=== PATIENT | female | born 1990 | race Asian ===

== ENCOUNTER 2020-02-02 17:51 | Inpatient (IN) | payer OTHER ==
[~2020-02-02] VITALS: Ht 157.5 cm; Wt 66.8 kg
[2020-02-02 18:04] VITALS: BP 104/68
[2020-02-02] MEDS ORDERED: OXYTOCIN 30U/ 0.9% NaCL 500ML 500 ML ONE (19:19)
[2020-02-02] MEDS ORDERED: NEWBORN KIT ONE (19:20)
[2020-02-02] MEDS ORDERED: OXYTOCIN 30U/ 0.9% NaCL 500ML 500 ML IV PRN (20:12)
[2020-02-02] MEDS ORDERED: OXYTOCIN 30U/ 0.9% NaCL 500ML 500 ML IV ONE (20:12)
[2020-02-02] MEDS ORDERED: FENTANYL/BUPIV./NS/PF 250 ML EPIDCONT SCH (20:14)
[2020-02-02] MEDS ORDERED: FENTANYL PF 100 MCG/2ML ONE ×3 (20:14→22:34)
[2020-02-02] MEDS: FENTANYL PF 100 MCG/2ML IVPush PRN ×3 (20:18→22:36)
[2020-02-02] MEDS: LACTATED RINGERS 1,000 ML IV SCH (20:19)
[2020-02-02] MEDS ORDERED: TERBUTALINE 1 MG/ML, 1ML SQ PRN (20:30)
[2020-02-02] MEDS ORDERED: FENTANYL PF 500 MCG, BUPIVACAINE/PF 0.5%, 30ML 62.5 ML in SODIUM CHLORIDE 0.9% 177.5 ML EPIDCONT SCH (20:30)
[2020-02-02] MEDS ORDERED: EPHEDRINE 50 MG/ML, 1ML IVPush PRN (20:30)
[2020-02-02] MEDS ORDERED: CALCIUM CARBONATE 500 MG TAB.CHEW PO PRN (20:30)
[2020-02-02] MEDS ORDERED: LACTATED RINGERS 1,000 ML IVBOLUS PRN (20:30)
[2020-02-02] MEDS ORDERED: TERBUTALINE 1 MG/ML, 1ML IVPush PRN (20:30)
[2020-02-02] MEDS ORDERED: FENTANYL PF 100 MCG/2ML IV PRN (20:30)
[2020-02-02] MEDS ORDERED: ONDANSETRON 2MG/ML, 2ML IVPush PRN (20:30)
[2020-02-02 20:38] LABS: BASOPHILS # (AUTO) 0.18 x10^3/uL (0-0.1); BASOPHILS % (AUTO) 2 % (0-1); EOSINOPHILS # (AUTO) 0.09 x10^3/uL (0-0.4); EOSINOPHILS % (AUTO) 1 % (1-7); LYMPHOCYTES # (AUTO) 1.41 x10^3/uL (1-3.4); LYMPHOCYTES % (AUTO) 13 % (22-44); MD NO; MEAN CORPUSCULAR HEMOGLOBIN 31.8 pg (27.0-34.8); MEAN CORPUSCULAR HGB CONC 33.4 g/dL (32.4-35.8); MEAN CORPUSCULAR VOLUME 95.4 fL (80-100); MEAN PLATELET VOLUME 6.2 fL (7.4-10.4); MONOCYTES # (AUTO) 0.54 x10^3/uL (0.2-0.8); MONOCYTES % (AUTO) 5 % (2-9); NEUTROPHILS % (AUTO) 80 % (42-75); PLATELET COUNT 280 x10^3/uL (130-400); RED BLOOD COUNT 3.85 x10^6/uL (3.82-5.3); RED CELL DISTRIBUTION WIDTH 13.7 % (9.6-15.2)
[2020-02-03] MEDS: LACTATED RINGERS 1,000 ML IV SCH (00:25)
[2020-02-03] MEDS ORDERED: OXYTOCIN 30U/ 0.9% NaCL 500ML 500 ML ONE (00:34)
[2020-02-03] MEDS ORDERED: FENTANYL PF 100 MCG/2ML ONE (00:35)
[2020-02-03] MEDS: FENTANYL PF 100 MCG/2ML IVPush PRN (00:40)
[2020-02-03 02:34] VITALS: BP 110/73
[2020-02-03] MEDS: OXYTOCIN 30U/ 0.9% NaCL 500ML 500 ML IV SCH ×3 (02:42→22:42)
[2020-02-03] MEDS ORDERED: DOCUSATE 100 MG CAPSULE PO PRN (03:00)
[2020-02-03] MEDS ORDERED: HYDROcodone/APAP 5/325 TABLET PO PRN ×2 (03:00)
[2020-02-03] MEDS ORDERED: ACETAMINOPHEN 325 MG TABLET PO PRN (03:00)
[2020-02-03] MEDS ORDERED: SIMETHICONE 80 MG CHEW TAB PO PRN (03:00)
[2020-02-03] MEDS ORDERED: IBUPROFEN 800 MG TABLET PO PRN (03:00)
[2020-02-03] MEDS ORDERED: IBUPROFEN 600 MG TABLET PO PRN (03:00)
[2020-02-03] MEDS ORDERED: OXYcodone/APAP 5/325MG TABLET PO PRN ×2 (03:00)
[2020-02-03] MEDS ORDERED: MISOPROSTOL 200 MCG TABLET PO PRN (03:00)
[2020-02-03 08:00] VITALS: BP 107/73
[2020-02-03 08:29] LABS: MEAN CORPUSCULAR HEMOGLOBIN 31.6 pg (27.0-34.8); MEAN CORPUSCULAR HGB CONC 32.9 g/dL (32.4-35.8); MEAN CORPUSCULAR VOLUME 95.8 fL (80-100); PLATELET COUNT 264 x10^3/uL (130-400); RED BLOOD COUNT 3.59 x10^6/uL (3.82-5.3); RED CELL DISTRIBUTION WIDTH 13.2 % (9.6-15.2)
[2020-02-03 08:55] LABS: BASOPHILS # (AUTO) 0.09 x10^3/uL (0-0.1); BASOPHILS % (AUTO) 1 % (0-1); EOSINOPHILS # (AUTO) 0.04 x10^3/uL (0-0.4); EOSINOPHILS % (AUTO) 0 % (1-7); LYMPHOCYTES % (AUTO) 12 % (22-44); MD SCAN; MONOCYTES % (AUTO) 4 % (2-9); NEUTROPHILS # (AUTO) 11.48 x10^3/uL (1.8-6.8); NEUTROPHILS % (AUTO) 84 % (42-75)
[2020-02-03] MEDS: PRENATAL VIT/IRON/FA 1 EACH TABLET PO SCH (09:00)
[2020-02-03 11:39] VITALS: BP 102/67
[2020-02-03 16:00] VITALS: BP 96/64
[2020-02-03 19:45] VITALS: BP 103/69
[2020-02-04] VITALS: BP 100/63
[2020-02-04 07:30] VITALS: BP 104/69
[2020-02-04] MEDS: PRENATAL VIT/IRON/FA 1 EACH TABLET PO SCH (08:12)
[2020-02-04] MEDS: OXYTOCIN 30U/ 0.9% NaCL 500ML 500 ML IV SCH (08:42)
[2020-02-04] MEDS ORDERED: IBUP-1222 PO (10:21)
== END 2020-02-04 11:40 | disposition home or self-care (01) | DRG 807 ==
LOC: LDOP 17:51 → LDIP 19:08 → 2NW 02-03 02:08
PROVIDERS: ADMIT Student in an Organized Health Care Education/Training Program; ATTEND Student in an Organized Health Care Education/Training Program
PROC: 10E0XZZ Delivery of Products of Conception, External Approach (ICD-10-PCS; principal; 2020-02-03)
PROC: 0UQMXZZ Repair Vulva, External Approach (ICD-10-PCS; 2020-02-03)
DX: O36.8130 Decreased fetal movements, third trimester, not applicable or unspecified (principal); Z37.0 Single live birth; J45.909 Unspecified asthma, uncomplicated; O99.52 Diseases of the respiratory system complicating childbirth; Z3A.38 38 weeks gestation of pregnancy; Z80.3 Family history of malignant neoplasm of breast; Z82.3 Family history of stroke; O70.0 First degree perineal laceration during delivery
CPT/HCPCS: 36415; 85025; 86592; 86850; 86900; G0378; J3010; J7120